=== PATIENT | female | born 1960 | race Caucasian/White ===

== ENCOUNTER → 2021-01-23 | Outpatient (CLI) | payer MEDICAID ==
[~2021-01-23] MED LIST: CETI-158 PO; CYCL10TA2 PO; GABA600T7 PO; HYDR-2214 PO; MELO7.5T31 PO; TRAZ50TA66 PO
[2021-01-23 08:36] LABS: BASOPHILS % (AUTO) 1 % (0-1); EOSINOPHILS % (AUTO) 4 % (1-7); LYMPHOCYTES % (AUTO) 24 % (22-44); MEAN CORPUSCULAR HGB CONC 33.8 g/dL (32.4-35.8); MEAN PLATELET VOLUME 8.4 fL (7.4-10.4); MONOCYTES % (AUTO) 9 % (2-9); NEUTROPHILS % (AUTO) 62 % (42-75); PLATELET COUNT 321 x10^3/uL (130-400); RED BLOOD COUNT 4.77 x10^6/uL (3.82-5.3); RED CELL DISTRIBUTION WIDTH 14.2 % (9.6-15.2)
[2021-01-23 08:37] LABS: MD NO
[2021-01-23 08:44] LABS: INTERNATIONAL NORMALIZED RATIO 0.97 (0.93-1.1); PROTHROMBIN TIME 10.4 Seconds (9.6-11.5)
[2021-01-23 08:45] LABS: ALANINE AMINOTRANSFERASE 47 U/L (12-78); ALBUMIN 3.8 g/dL (3.4-5.0); CALCIUM 9.5 mg/dL (8.5-10.1); CHLORIDE 107 mmol/L (98-107); CREATININE 0.69 mg/dL (0.55-1.02)
[2021-01-23 08:47] LABS: ALKALINE PHOSPHATASE 68 U/L (45-117); BILIRUBIN,TOTAL 0.4 mg/dL (0.2-1.0); TOTAL PROTEIN 7.3 g/dL (6.4-8.2)
[2021-01-23 09:12] LABS: ANION GAP 8 mmol/L (5-15)
== END | disposition home or self-care (01) ==
LOC: STAR 07:21
PROVIDERS: ATTEND Neurological Surgery
DX: Z01.818 Encounter for other preprocedural examination (principal); M48.061 Spinal stenosis, lumbar region without neurogenic claudication; R94.31 Abnormal electrocardiogram [ECG] [EKG]
CPT/HCPCS: 36415; 71046; 80053; 85025; 85610; 85730; 93005

== ENCOUNTER → 2021-02-01 | Outpatient (CLI) | payer OTHER | END | disposition home or self-care (01) | LOC: STAR 11:14 | PROVIDERS: ATTEND Neurological Surgery | DX: Z20.822 Contact with and (suspected) exposure to COVID-19 (principal) | CPT/HCPCS: U0003; U0005 ==

== ENCOUNTER 2021-02-05 05:49 | Inpatient (IN) | payer MEDICAID, OTHER ==
[2021-01-23 08:16] VITALS: BP 153/85
[~2021-02-05] VITALS: Ht 162.6 cm; Wt 102.0 kg
[2021-02-05] MEDS ORDERED: MIDAZOLAM 1 MG/ML, 2ML ONE (06:51)
[2021-02-05] MEDS ORDERED: TRAM50TA2 PO (06:51)
[2021-02-05] MEDS ORDERED: FENTANYL PF 250 MCG/5ML ONE ×2 (06:51→08:04)
[2021-02-05] MEDS ORDERED: BACITRACIN 50,000 UNIT ONE (07:00)
[2021-02-05] MEDS ORDERED: CHLORHEXIDINE 15 ML UDC PO ONE (07:00)
[2021-02-05] MEDS ORDERED: EPINEPHRINE 1 MG/ML, 1ML ONE (07:00)
[2021-02-05] MEDS ORDERED: BUPIVACAINE/PF 0.5% ONE (07:00)
[2021-02-05] MEDS ORDERED: LACTATED RINGERS 1,000 ML IV SCH (07:00)
[2021-02-05] MEDS ORDERED: PROPOFOL 100 ML ONE (07:19)
[2021-02-05] MEDS ORDERED: HYDROmorphone 1 MG/ML, 1ML INJ IVPush PRN (07:30)
[2021-02-05] MEDS ORDERED: morphine SULFATE 10 MG/ML, 1ML IVPush PRN (07:30)
[2021-02-05] MEDS ORDERED: ACETAMINOPHEN 325 MG TABLET PO PRN (07:30)
[2021-02-05] MEDS ORDERED: FENTANYL PF 100 MCG/2ML IV PRN (07:30)
[2021-02-05] MEDS ORDERED: MEPERIDINE/PF 25MG/0.5ML IVPush PRN (07:30)
[2021-02-05] MEDS ORDERED: hydrALAzine 20 MG/ML, 1ML IV PRN (07:30)
[2021-02-05] MEDS ORDERED: HALOPERIDOL 5 MG/ML IV PRN (07:30)
[2021-02-05] MEDS ORDERED: PROMETHAZINE 25 MG/ML, 1ML IVPush PRN (07:30)
[2021-02-05] MEDS ORDERED: OXYcodone 5 MG/5 ML ORAL.SOL UDC PO PRN (07:30)
[2021-02-05] MEDS ORDERED: LABETALOL 5MG/ML, 20ML IV PRN ×2 (07:30→16:30)
[2021-02-05] MEDS ORDERED: PHENYLEPHRINE 10 MG/ML ONE (07:36)
[2021-02-05] MEDS ORDERED: DEXAMETHASONE 4 MG/ML, 1ML ONE (08:04)
[2021-02-05] MEDS ORDERED: ROCURONIUM 10MG/ML,5ML ONE (08:04)
[2021-02-05] MEDS ORDERED: NEOSTIGMINE 1 MG/ML, 10ML ONE (08:04)
[2021-02-05] MEDS ORDERED: CEFAZOLIN 1,000 MG ONE (08:04)
[2021-02-05] MEDS ORDERED: GLYCOPYRROLATE 0.2MG/1ML, 5ML ONE (08:04)
[2021-02-05] MEDS ORDERED: PROPOFOL 10 MG/ML, 20ML ONE (08:04)
[2021-02-05] MEDS ORDERED: ONDANSETRON 2MG/ML, 2ML ONE (08:04)
[2021-02-05] MEDS ORDERED: PROPOFOL 50 ML ONE ×2 (09:37→10:44)
[2021-02-05] MEDS ORDERED: FENTANYL PF 100 MCG/2ML ONE (12:40)
[2021-02-05] MEDS ORDERED: DIAZEPAM 5 MG/ML, 2ML ONE (12:49)
[2021-02-05] MEDS ORDERED: DIAZEPAM 5 MG/ML, 2ML IV ONE (12:50)
[2021-02-05] MEDS ORDERED: ACETAMINOPHEN 650 MG/20.3 ML UDC ONE (13:18)
[2021-02-05] MEDS ORDERED: OXYcodone 5 MG/5 ML ORAL.SOL UDC ONE (13:18)
[2021-02-05] MEDS ORDERED: MEPERIDINE/PF 25MG/ML,1ML ONE (13:19)
[2021-02-05] MEDS ORDERED: DIPHENHYDRAMINE 25 MG CAPSULE PO PRN (16:00)
[2021-02-05] MEDS ORDERED: HYDROmorphone 2 MG/ML, 1ML IM PRN (16:00)
[2021-02-05] MEDS ORDERED: DIPHENHYDRAMINE 50 MG/ML, 1ML IVPush PRN (16:30)
[2021-02-05] MEDS ORDERED: ONDANSETRON 2MG/ML, 2ML IV PRN (16:30)
[2021-02-05] MEDS ORDERED: DIPHENHYDRAMINE 50 MG/ML, 1ML IM PRN (16:30)
[2021-02-05] MEDS ORDERED: DIAZEPAM 5 MG/ML, 2ML IV PRN (16:30)
[2021-02-05] MEDS ORDERED: BISACODYL 10 MG SUPP PR PRN (16:30)
[2021-02-05] MEDS ORDERED: MAGNESIUM HYDROXIDE 8%, 30ML UDC PO PRN (16:30)
[2021-02-05] MEDS: NS + 20MEQ KCL 1,000 ML IV SCH (17:03)
[2021-02-05] MEDS: CEFAZOLIN PMX 1GM/50ML 50 ML IVPB SCH (17:03)
[2021-02-05 19:05] VITALS: BP 104/68
[2021-02-05] MEDS: PROMETHAZINE 25 MG/ML, 1ML IM PRN (20:02)
[2021-02-05] MEDS: FAMOTIDINE 20 MG TABLET PO SCH (20:55)
[2021-02-05] MEDS: CYCLOBENZAPRINE 10 MG TABLET PO SCH (20:55)
[2021-02-05] MEDS: GABAPENTIN 300 MG CAPSULE PO SCH (20:56)
[2021-02-05] MEDS ORDERED: DEXAMETHASONE 4 MG TABLET PO SCH (21:00)
[2021-02-06] MEDS: CEFAZOLIN PMX 1GM/50ML 50 ML IVPB SCH (00:03)
[2021-02-06 00:44] VITALS: BP 125/80
[2021-02-06] MEDS: PROMETHAZINE 25 MG/ML, 1ML IM PRN (00:50)
[2021-02-06] MEDS: OXYcodone IR 5MG TABLET PO PRN ×6 (02:21→21:53)
[2021-02-06 03:39] VITALS: BP 125/73
[2021-02-06 05:27] LABS: BASOPHILS % (AUTO) 0 % (0-1); EOSINOPHILS % (AUTO) 0 % (1-7); LYMPHOCYTES % (AUTO) 8 % (22-44); MEAN CORPUSCULAR HEMOGLOBIN 30.1 pg (27.0-34.8); MEAN CORPUSCULAR HGB CONC 33.1 g/dL (32.4-35.8); MEAN PLATELET VOLUME 8.4 fL (7.4-10.4); MONOCYTES % (AUTO) 5 % (2-9); NEUTROPHILS % (AUTO) 87 % (42-75); PLATELET COUNT 286 x10^3/uL (130-400); RED BLOOD COUNT 4.21 x10^6/uL (3.82-5.3); RED CELL DISTRIBUTION WIDTH 14.8 % (9.6-15.2)
[2021-02-06 05:36] LABS: CHLORIDE 105 mmol/L (98-107)
[2021-02-06 05:40] LABS: ALBUMIN 3.5 g/dL (3.4-5.0); ANION GAP 7 mmol/L (5-15); CALCIUM 8.9 mg/dL (8.5-10.1); CREATININE 0.86 mg/dL (0.55-1.02)
[2021-02-06] MEDS: METHOCARBAMOL 750 MG TABLET PO PRN (05:48)
[2021-02-06] MEDS: NS + 20MEQ KCL 1,000 ML IV SCH ×2 (05:50→19:28)
[2021-02-06 06:55] VITALS: BP 124/76
[2021-02-06] MEDS: DEXAMETHASONE 4 MG/ML, 1ML IVPush SCH ×3 (08:12→23:51)
[2021-02-06] MEDS: GABAPENTIN 300 MG CAPSULE PO SCH ×2 (08:15→21:54)
[2021-02-06] MEDS: SENNA/DOCUSATE TABLET PO SCH (08:16)
[2021-02-06] MEDS: CYCLOBENZAPRINE 10 MG TABLET PO SCH ×3 (08:16→21:54)
[2021-02-06] MEDS: FAMOTIDINE 20 MG TABLET PO SCH ×2 (08:16→21:54)
[2021-02-06] MEDS: CETIRIZINE 10 MG TABLET PO SCH (08:16)
[2021-02-06 13:35] VITALS: BP 132/79
[2021-02-06] MEDS ORDERED: ZOLPIDEM 10MG TABLET PO PRN (20:00)
[2021-02-06 20:35] VITALS: BP 125/76
[2021-02-07] MEDS: OXYcodone IR 5MG TABLET PO PRN ×7 (00:58→23:25)
[2021-02-07 02:16] VITALS: BP 121/82
[2021-02-07 04:54] LABS: BASOPHILS % (AUTO) 1 % (0-1); EOSINOPHILS % (AUTO) 0 % (1-7); LYMPHOCYTES % (AUTO) 7 % (22-44); MEAN CORPUSCULAR HGB CONC 33.3 g/dL (32.4-35.8); MEAN PLATELET VOLUME 8.3 fL (7.4-10.4); MONOCYTES % (AUTO) 5 % (2-9); NEUTROPHILS % (AUTO) 87 % (42-75); PLATELET COUNT 292 x10^3/uL (130-400); RED BLOOD COUNT 4.31 x10^6/uL (3.82-5.3); RED CELL DISTRIBUTION WIDTH 14.8 % (9.6-15.2)
[2021-02-07] MEDS: PHENOL THROAT SPRAY BOTTLE MM PRN ×5 (04:56→17:14)
[2021-02-07] MEDS: CETIRIZINE 10 MG TABLET PO SCH (07:36)
[2021-02-07] MEDS: FAMOTIDINE 20 MG TABLET PO SCH ×2 (07:36→21:00)
[2021-02-07] MEDS: CYCLOBENZAPRINE 10 MG TABLET PO SCH ×3 (07:36→23:25)
[2021-02-07] MEDS: GABAPENTIN 300 MG CAPSULE PO SCH ×2 (07:36→21:00)
[2021-02-07] MEDS: SENNA/DOCUSATE TABLET PO SCH (07:37)
[2021-02-07 08:01] VITALS: BP 138/86
[2021-02-07] MEDS: NS + 20MEQ KCL 1,000 ML IV SCH ×2 (09:13→22:40)
[2021-02-07] MEDS: DEXAMETHASONE 4 MG/ML, 1ML IVPush SCH ×2 (10:15→17:13)
[2021-02-07] MEDS: METHOCARBAMOL 750 MG TABLET PO PRN (12:32)
[2021-02-07 12:59] VITALS: BP 149/83
[2021-02-07 19:28] VITALS: BP 133/61
[2021-02-08] MEDS: DEXAMETHASONE 4 MG/ML, 1ML IVPush SCH ×2 (01:06→09:32)
[2021-02-08 02:19] VITALS: BP 126/90
[2021-02-08] MEDS: OXYcodone IR 5MG TABLET PO PRN ×4 (02:37→16:55)
[2021-02-08] MEDS: PHENOL THROAT SPRAY BOTTLE MM PRN (05:33)
[2021-02-08 05:38] LABS: BASOPHILS % (AUTO) 0 % (0-1); EOSINOPHILS % (AUTO) 0 % (1-7); LYMPHOCYTES % (AUTO) 9 % (22-44); MEAN CORPUSCULAR HEMOGLOBIN 30.2 pg (27.0-34.8); MEAN CORPUSCULAR HGB CONC 33.7 g/dL (32.4-35.8); MEAN PLATELET VOLUME 8.4 fL (7.4-10.4); MONOCYTES % (AUTO) 5 % (2-9); NEUTROPHILS % (AUTO) 87 % (42-75); PLATELET COUNT 297 x10^3/uL (130-400); RED CELL DISTRIBUTION WIDTH 14.7 % (9.6-15.2)
[2021-02-08 06:54] VITALS: BP 143/84
[2021-02-08] MEDS: GABAPENTIN 300 MG CAPSULE PO SCH (07:34)
[2021-02-08] MEDS: FAMOTIDINE 20 MG TABLET PO SCH (07:34)
[2021-02-08] MEDS: CETIRIZINE 10 MG TABLET PO SCH (07:34)
[2021-02-08] MEDS: CYCLOBENZAPRINE 10 MG TABLET PO SCH ×2 (07:34→16:55)
[2021-02-08] MEDS: SENNA/DOCUSATE TABLET PO SCH (07:34)
[2021-02-08] MEDS: NS + 20MEQ KCL 1,000 ML IV SCH (12:00)
[2021-02-08 13:40] VITALS: BP 142/83
== END 2021-02-08 17:30 | disposition home or self-care (01) | DRG 473 ==
LOC: OUT 05:49 → 4NE 15:28 → OUT 22:55 → 4NE 22:56
PROVIDERS: ADMIT Neurological Surgery; ATTEND Neurological Surgery
PROC: 0RB30ZZ Excision of Cervical Vertebral Disc, Open Approach (ICD-10-PCS; 2021-02-05)
PROC: 01N10ZZ Release Cervical Nerve, Open Approach (ICD-10-PCS; 2021-02-05)
PROC: XRG2092 Fusion of 2 or more Cervical Vertebral Joints using Nanotextured Surface Interbody Fusion Device, Open Approach, New Technology Group 2 (ICD-10-PCS; principal; 2021-02-05 07:30)
DX: M48.02 Spinal stenosis, cervical region (principal); M54.12 Radiculopathy, cervical region; G83.9 Paralytic syndrome, unspecified; Z88.5 Allergy status to narcotic agent; Z91.013 Allergy to seafood; Z91.041 Radiographic dye allergy status
CPT/HCPCS: 36415; 72040; S0020; 72125; 80048; 82040; 85025; 86850; 86900; 95938; 95941; C1713; G0378; J0171; J0690; J1100; J2175; J2250; J2270; J2405; J2550; J2704; J2710; J3010; J3360; J3480; C1889; J1200; J2370; J7120